=== PATIENT | male | born 1955 | race African-American/Black ===

== ENCOUNTER → 2017-10-07 | Outpatient (CLI) | payer OTHER ==
[~2017-10-07] MED LIST: ALBU1AER INH; MOTR200T PO; NORV5TAB PO
--- NOTE | 2017-10-07 13:48 | RADRPT ---
EXAM DATE/TIME: 10/07/2017 13:30 [place] COMPARISON: No previous studies available for comparison. INDICATIONS : Patient states cough. MEDICAL HISTORY : Hypertension. SURGICAL HISTORY : None. ENCOUNTER: Initial ACUITY: 1 week PAIN SCORE: 0/10 LOCATION: Bilateral chest FINDINGS: PA and lateral views of the chest demonstrate the lungs to be symmetrically aerated without evidence of mass, infiltrate or effusion. The cardiomediastinal contours are unremarkable. Osseous structure s are intact with scoliosis and degenerative change. CONCLUSION: No acute disease. There is no evidence of pneumonia. Luis Martinez MD on October 07, 2017 at 13:44 Board Certified Radiologist. This report was verified electronically.
== END ==
LOC: HRSP 12:01
PROVIDERS: ATTEND Internal Medicine Sleep Medicine
DX: R06.89 Other abnormalities of breathing (principal)
CPT/HCPCS: 36600; 71046; 82805; 94060; 94726; 94729

== ENCOUNTER → 2018-02-27 | Outpatient (CLI) | payer OTHER ==
--- NOTE | 2018-03-03 08:27 | RSPPFT ---
DATE OF PROCEDURE: 02/27/18 COMMENTS: Spirometry with FVC of 1.0, FEV1 of 0.4, FEV1/FVC ratio at 43%. There is no significant response to acutely inhaled bronchodilator. Room air arterial blood gases show pH of 7.36, PCO2 of 49, PO2 of 46. Lung volumes were not performed. IMPRESSION: 1. Very severe airways obstruction. 2. Non-significant response to acutely inhaled bronchodilator. 3. Hypoxic and Hypercapnic respiratory failure.
== END ==
LOC: HRSP 09:26
PROVIDERS: ATTEND Internal Medicine Sleep Medicine
DX: R06.89 Other abnormalities of breathing (principal)
CPT/HCPCS: 36600; 82805; 94060

== ENCOUNTER 2018-04-01 18:17 | Inpatient (IN) ==
--- NOTE | 2018-04-01 18:35 | ED ---
HPI General Chief complaint: Altered Mental Status Stated complaint: Pt states confused Time Seen by Provider: 04/01/18 18:27 History of Present Illness HPI narrative: Patient 63-year-old male reportedly dropped off at the front waiting area by a friend for evaluation of altered mental status. Patient somewhat confused on arrival, solicited by nursing question the patient is having difficulty finding words, when asked how long he says about an hour. He cannot tell us what time it is now however. Oriented to self only. He is not having any neologisms but is unable to give finish his sentence completely but is not stuttering. Does appear that he is grasping trying to find words. Given his level of altered mental status I cannot put a great deal of anthony in his timeline. Unfortunately no family or friends are able to give additional history on this patient as none are available at the bedside. Related Data Allergies Allergy/AdvReac Type Severity Reaction Status Date / Time penicillin G Allergy Severe Anaphylaxis Verified 04/01/18 19:00 Review of Systems ROS Unobtainable unobtainable due to mental condition PMFSH Medical History Medical History HTN (hypertension) (Acute) Social History Social History Substance History: Unable to Obtain Second Hand Smoke Exposure: No Smoking Status: Current some day smoker Tobacco Type: Cigarettes How Often Do You Have a Drink Containing Alcohol: 4 or more times a week Recent Travel in [facility] within the Last 8 Weeks: No Recent Out of Country Travel within the Last 8 Weeks: No Exam Narrative Exam Narrative: GENERAL: Well-developed well-nourished no obvious distress, thin. SKIN: Focused skin assessment warm/dry. HEAD: Atraumatic. Normocephalic. EYES: Pupils equal and round. No scleral icterus. No injection or drainage. ENT: No nasal bleeding or discharge. Mucous membranes pink and moist. NECK: Trachea midline. No JVD. CARDIOVASCULAR: Regular rate and rhythm. No murmur appreciated. RESPIRATORY: No accessory muscle use. Clear to auscultation. Breath sounds equal bilaterally. GASTROINTESTINAL: Abdomen soft, non-tender, nondistended. Hepatic and splenic margins not palpable. MUSCULOSKELETAL: No obvious deformities. No clubbing. No cyanosis. No edema. NEUROLOGICAL: Awake and alert. Patient unable to track to the right of midline when I am standing on his left, when I switched sides on the bed he is able to track completely. No pronator drift, no weakness appreciated in the arm or legs , he is having some difficulty identifying simple objects and finding words otherwise does not appear to have any focalized deficits. Total NIH stroke scale is 3. PSYCHIATRIC: Appropriate mood and affect; insight and judgment normal. Course Initial Documented Vital Signs Temperature 97.6 F 04/01/18 18:22 Pulse Rate 72 04/01/18 18:22 Respiratory Rate 17 04/01/18 18:22 Blood Pressure 234/107 H 04/01/18 18:22 Pulse Oximetry 94 L 04/01/18 18:22 Last Documented Vital Signs Temperature 97.6 F 04/01/18 18:22 Pulse Rate 56 L 04/01/18 19:20 Respiratory Rate 20 04/01/18 19:20 Blood Pressure 193/98 H 04/01/18 19:20 Pulse Oximetry 94 L 04/01/18 19:20 Critical Care Time Total Critical Care Time: 35 Attestation: Aggregate critical care time was 35 minutes. Time to perform other separately billable procedures was not included in the critical care time. My time did not include minutes spent treating any other patients simultaneously or on activities that did not directly contribute to the patient's treatment. The services I provided to this patient were to treat and/or prevent clinically significant deterioration that could result in: , disability, organ failure I provided critical care services requiring my management, as noted below: Chart data review, documentation time, medication orders and management, vital sign assessments/reviewing monitor data, ordering and reviewing lab tests, ordering and interpreting/reviewing x-rays and diagnostic studies, care of the patient and discussion of the patient with the admitting physicians. Medical Decision Making MDM Narrative Medical decision making narrative: Patient room to the emergency department, on further history the patient states he "feels very strange like he was going to have a stroke". Very vague timeline with the patient was stroke alerted to be taken to the CT scanner more expediently. The patient was discussed with Dr. Ji and I expressed my opinion that the patient does not have a definitive timeline and therefore would not be a candidate for systemic TPA infusion Dr. Ji is agreed. The patient was initially slated to have CTA at the same time however creatinine is 2.1. They would be reasonable to have MRI/MRA instead. This is been ordered. Patient's NIH stroke scale is very low. We will continue to work up as an inpatient for possible acute ischemic stroke. A CT of his head without contrast did show multiple old infarcts without anything acute. Patient discussed with Dr. Mcknight for admission, patient's working diagnosis is acute stroke versus hypertensive encephalopathy. No other definitive cause of his altered mental status yet been identified but given the hypertension and the multiple old infarcts seen on the patient I think it is more than likely he has had a recent infarct. He does not meet TPA guidelines does not have a definitive timeline for systemic TPA. MRI/MRA have been ordered, a KUB has been ordered at the request of maintenance mechanic technician to screen for metal objects patient is not able to answer the MRI questionnaire on his own. Differential Diagnosis Differential Diagnosis: Hemorrhagic stroke, ischemic stroke, altered mental status, electrolyte abnormality Lab Data Result diagrams: 04/01/18 18:34 Lab Results 04/01/18 04/01/18 04/01/18 Range/Units 18:34 18:34 18:34 POC Hgb (Calc) (13.0-17.0) g/dL POC Hct (39-51.0) % PT 10.7 (9.8-11.6) sec INR 1.1 Ratio APTT 26.6 (24.3-30.1) sec POC Sodium (137-144) mmol/L Sodium 142 (136-145) meq/L POC Potassium (3.6-5.0) mmol/L Potassium 3.8 (3.5-5.1) meq/L POC Chloride (102-111) mmol/L Chloride 108 H (98-107) meq/L Carbon Dioxide 26.0 (21.0-32.0) meq/L Anion Gap 8 (5-15) meq/L POC BUN (5-21) mg/dL BUN 28 H (7-18) mg/dL Creatinine 2.10 H (0.60-1.30) mg/dL POC Creatinine (0.6-1.3) mg/dL Estimated GFR 39 L (>89) mL/min POC Glucose (68-110) mg/dl Random Glucose 72 L (74-106) mg/dL Calcium 8.5 (8.5-10.1) mg/dL Total Creatine Kinase 80 (39-308) U/L Troponin I 0.03 (0.02-0.05) ng/mL Blood Type B Positive Blood Type Recheck Required Antibody Screen Negative 04/01/18 04/01/18 Range/Units 18:36 18:36 POC Hgb (Calc) 17.0 (13.0-17.0) g/dL POC Hct 50.0 (39-51.0) % PT (9.8-11.6) sec INR Ratio APTT (24.3-30.1) sec POC Sodium 141 (137-144) mmol/L Sodium (136-145) meq/L POC Potassium 3.8 (3.6-5.0) mmol/L Potassium (3.5-5.1) meq/L POC Chloride 101 L (102-111) mmol/L Chloride (98-107) meq/L Carbon Dioxide (21.0-32.0) meq/L Anion Gap (5-15) meq/L POC BUN 31 H (5-21) mg/dL BUN (7-18) mg/dL Creatinine (0.60-1.30) mg/dL POC Creatinine 2.1 H (0.6-1.3) mg/dL Estimated GFR (>89) mL/min POC Glucose 73 74 (68-110) mg/dl Random Glucose (74-106) mg/dL Calcium (8.5-10.1) mg/dL Total Creatine Kinase (39-308) U/L Troponin I (0.02-0.05) ng/mL Blood Type Blood Type Recheck Antibody Screen Imaging Data Radiologist's impression: Chest X-Ray 04/01/18 18:35 CONCLUSION: No acute abnormality is seen. Head CT 04/01/18 18:35 CONCLUSION: 1. No areas of hemorrhage or mass effect are seen. 2. Several areas of low density as described above likely from prior infarct. Report was called by Dr. Gonzalez to Dr. Lynch at 7:03 PM] Discharge Plan Discharge Disposition Patient Disposition: 30 Still Patient Discharge Details Diagnosis: Stroke Physicians Team ED Provider: Corey Lynch Primary Care Provider: Daniel Bradshaw Discharge Interventions Interventions: Vital Signs Last Done: 04/01/18 19:20 Status ED Status: Pending Admission
[2018-04-01] MEDS ORDERED: *Labetalol HCl Inj 100 MG/20 ML Vial PERIprocedural Use ONLY IV.PUSH ONE (18:37)
[2018-04-01] MEDS ORDERED: Sod Chloride 0.9% Inj 1,000 ML IV.CONT SCH (18:45)
--- NOTE | 2018-04-01 19:05 | CT ---
EXAM DATE: 04/01/2018 6:57 PM EDT AGE/SEX: 63 years / Male INDICATIONS: Trouble with speech CLINICAL DATA: This is the patient's initial encounter. Patient reports that signs and symptoms have been present for 1 day and indicates a pain score of 0/10. MEDICAL/SURGICAL HISTORY: . Unable to obtain . UNABLE TO OBTAIN RADIATION DOSE: 30.07 CTDI (mGy) COMPARISON: No prior exams available for comparison. TECHNIQUE: CT of the head without contrast. Using automated exposure control and adjustment of the mA and/or kV according to patient size, radiation dose was kept as low as reasonably achievable to ob tain optimal diagnostic quality images. DICOM format image data is available electronically for revi ew and comparison. FINDINGS: Cerebrum: The ventricles and cortical sulci are mildly widened. There is an area of low density seen at the posterior superior lateral right parietal lobe likely related to a small area of encephalomal acia. The patient also has areas of encephalomalacia at the left caudate head and anterior limb of th e internal capsule, inferior right caudate head, and posterior inferior medial left frontal lobe erwin cent to the inferior aspect of the frontal horn of the left lateral ventricle. These are likely the s equela of prior infarcts. No evidence of midline shift, mass lesion, hemorrhage or acute infarction . No extraaxial fluid collections are seen. Posterior Fossa: The cerebellum and brainstem are intact. The 4th ventricle is midline. The cerebe llopontine angle is unremarkable. Extracranial: The visualized portion of the orbits is intact. Skull: The calvaria is intact. No evidence of skull fracture. CONCLUSION: 1. No areas of hemorrhage or mass effect are seen. 2. Several areas of low density as described above likely from prior infarct. Report was called by Dr. Gonzalez to Dr. Lynch at 7:03 PM] Electronically signed by: Corey Gonzalez MD 04/01/2018 7:04 PM EDT
--- NOTE | 2018-04-01 19:12 | XR ---
EXAM DATE: 04/01/2018 7:02 PM EDT AGE/SEX: 63 years / Male INDICATIONS: Stroke alert. CLINICAL DATA: This is the patient's initial encounter. Patient reports that signs and symptoms have been present for 1 day and indicates a pain score of 0/10. MEDICAL/SURGICAL HISTORY: Stroke. Hypertension. None. COMPARISON: [facility] – [place], CHEST PA & LAT, 10/07/2017. . FINDINGS: The heart size is normal. The lungs appear hyperinflated. A focal consolidation is not clearly seen. No effusion is seen. CONCLUSION: No acute abnormality is seen. Electronically signed by: Corey Gonzalez MD 04/01/2018 7:11 PM EDT
[2018-04-01 19:14] LABS: Activated Partial Thrombo Time 26.6 sec (24.3-30.1); INR 1.1 Ratio; Prothrombin Time 10.7 sec (9.8-11.6)
[2018-04-01 19:17] LABS: Calcium 8.5 mg/dL (8.5-10.1); Potassium 3.8 meq/L (3.5-5.1)
[2018-04-01 19:19] LABS: Troponin I 0.03 ng/mL (0.02-0.05)
[2018-04-01] MEDS ORDERED: Acetaminophen 325 MG Tablet PO PRN (20:24)
--- NOTE | 2018-04-01 20:48 | XR ---
EXAM DATE: 04/01/2018 8:41 PM EDT AGE/SEX: 63 years / Male INDICATIONS: MRI screening for foreign body. CLINICAL DATA: This is the patient's initial encounter. Patient reports that signs and symptoms have been present for 1 day and indicates a pain score of 0/10. MEDICAL/SURGICAL HISTORY: None. None. [place] [facility] [place]. [facility] [place] 1[place] SINGLE AP, 04/01/2018. . FINDINGS: The abdominal bowel gas pattern is normal. No abnormal masses, calcifications, or organomegaly is s een. The osseous structures are unremarkable. CONCLUSION: No foreign body is seen. Electronically signed by: Corey Gonzalez MD 04/01/2018 8:47 PM EDT
[2018-04-01] MEDS ORDERED: Haloperidol Inj 5 MG/ML Ampul IV.PUSH PRN (21:19)
[2018-04-01] MEDS ORDERED: LORazepam 1 MG Tablet PO PRN (21:19)
--- NOTE | 2018-04-01 21:21 | P.HP ---
History of Present Illness Service: [facility] Primary Care Physician: Daniel Bradshaw MD History of Present Illness: 63-year-old male with a past medical history significant for hypertension and previous CVA along with cocaine and alcohol abuse, presents to the emergency department for the evaluation of altered mental status. The patient reports that he felt funny. He is an extremely poor historian. Upon further questioning, he states he had word finding difficulty and could not talk for "a while." His symptoms have since resolved. Per ED documentation, the patient was dropped off in the front waiting area by a friend for altered mental status. He was oriented to self only. He was extremely hypertensive on arrival to the emergency department. The patient currently denies chest pain or shortness of breath. No headache. No abdominal pain. No nausea/vomiting/ diarrhea. No focal deficits. Inpatient Certification: I certify that the inpatient services were ordered in accordance with Medicare regulations governing the order. This includes certification that hospital inpatient services are reasonable and necessary and in the case of services not specified as inpatient-only under 42 CFR 419.22(n), that they are appropriately provided as inpatient services in accordance to with the 2-midnight benchmark under 43 CFR 412.3(e) Estimated Total Length of Stay (Days): 2 Plans for Post Hospital Care: Not yet determined [facility] - History History Provided By: Patient - Medical History Medical History: Medical History (Last Updated 04/01/18 @ 18:46 by Abbey Mckay) HTN (hypertension) - Family History Family History: Family History (Last Updated 04/01/18 @ 21:14 by Itzel Mcknight MD) Other No family history of cardiac disease - Tobacco History Second Hand Smoke Exposure: No Tobacco Use In Past 30 Days: Yes Smoking Status: Current some day smoker Tobacco Type: Cigarettes - Alcohol History How Often Do You Have a Drink Containing Alcohol: 4 or more times a week - Substance Use History Substance History: Unable to Obtain - Travel History Recent Travel in the [place] Within the Last 8 Weeks: No Recent Travel Out of the Country Within the Last 8 Weeks: No - Immunization History Tetanus Immunization: Unable to Assess Medications and Allergies Active Medications: Active Medications Acetaminophen (Tylenol) 650 mg PO Q4H PRN PRN Reason: Temp > 100.4 Aspirin (Aspirin Chew) 162 mg PO DAILY CHAITANYA Enalaprilat (Vasotec Inj) 1.25 mg IV.PUSH Q4H PRN PRN Reason: For SBP > 220 or DBP > 120 Sodium Chloride (Ns Inj) 1,000 mls @ 100 mls/hr IV.CONT .Q10H CHAITANYA Ondansetron HCl (Zofran Odt) 4 mg PO Q6H PRN PRN Reason: NAUSEA OR VOMITING Sodium Chloride (Ns Flush) 2 ml IV.FLUSH PRN PRN PRN Reason: FLUSH AFTER USING IV ACCESS Allergies Allergy/AdvReac Type Severity Reaction Status Date / Time penicillin G Allergy Severe Anaphylaxis Verified 04/01/18 19:00 Exam Vital signs: Vital Signs 04/01/18 18:22 04/01/18 18:46 04/01/18 19:20 Temperature 97.6 F Pulse Rate 72 56 L Respiratory Rate 17 20 Blood Pressure 234/107 H 214/113 H 193/98 H Pulse Oximetry 94 L 94 L Intake & Output 04/01/18 04/01/18 04/02/18 06:59 18:59 06:59 Weight 68.039 kg Narrative: Gen.: No acute distress Head: Normocephalic. Atraumatic. EENT: Pupils equal round and reactive to light. Nose without drainage. Airway intact. Throat without injection. Cardiovascular: Regular rate and rhythm. No murmurs, rubs or gallops. Respiratory: Lungs clear to auscultation bilaterally. No wheezes or rhonchi. Abdomen: Soft, nontender, nondistended. No peritoneal signs. Musculoskeletal: No gross deformities. No edema. Skin: No obvious rashes or erythema. Neuro: Cranial nerves II through XII intact. Sensory intact. 5/5 strength throughout. No dysarthria. Results - Labs CBC & Chem 7: 04/01/18 18:34 Labs: Laboratory Results - last 24 hr 04/01/18 04/01/18 04/01/18 18:34 18:34 18:34 POC Hgb (Calc) POC Hct PT 10.7 INR 1.1 APTT 26.6 POC Sodium Sodium 142 POC Potassium Potassium 3.8 POC Chloride Chloride 108 H Carbon Dioxide 26.0 Anion Gap 8 POC BUN BUN 28 H Creatinine 2.10 H POC Creatinine Estimated GFR 39 L POC Glucose Random Glucose 72 L Calcium 8.5 Total Creatine Kinase 80 Troponin I 0.03 Blood Type B Positive Blood Type Recheck Required Antibody Screen Negative 04/01/18 04/01/18 18:36 18:36 POC Hgb (Calc) 17.0 POC Hct 50.0 PT INR APTT POC Sodium 141 Sodium POC Potassium 3.8 Potassium POC Chloride 101 L Chloride Carbon Dioxide Anion Gap POC BUN 31 H BUN Creatinine POC Creatinine 2.1 H Estimated GFR POC Glucose 73 74 Random Glucose Calcium Total Creatine Kinase Troponin I Blood Type Blood Type Recheck Antibody Screen - Imaging Impressions Chest X-Ray 04/01/18 18:35 CONCLUSION: No acute abnormality is seen. Head CT 04/01/18 18:35 CONCLUSION: 1. No areas of hemorrhage or mass effect are seen. 2. Several areas of low density as described above likely from prior infarct. Report was called by Dr. Gonzalez to Dr. Lynch at 7:03 PM] Abdomen X-Ray 04/01/18 19:57 CONCLUSION: No foreign body is seen. Caprini VTE Risk Assessment Caprini VTE Risk Assessment: Moderate/High Risk (score >= 2) Caprini Risk Assessment Model: Point Value = 1 Point Value = 2 Point Value = 3 Point Value = 5 Age 41-60 Minor surgery BMI > 25 kg/m2 Swollen legs Varicose veins or History of unexplained or recurrent spontaneous Oral contraceptives or hormone replacement Sepsis (< 1 month) Serious lung disease, including pneumonia (< 1 month) Abnormal pulmonary function Acute myocardial infarction Congestive heart failure (< 1 month) History of inflammatory bowel disease Medical patient at bed rest Age 61-74 Arthroscopic surgery Major open surgery (> 45 min) Laparoscopic surgery (> 45 min) Malignancy Confined to bed (> 72 hours) Immobilizing plaster cast Central venous access Age >= 75 History of VTE Family history of VTE Factor V Leiden Prothrombin [id number] Lupus anticoagulant Anticardiolipin antibodies Elevated serum homocysteine Heparin-induced thrombocytopenia Other congenital or acquired thrombophilia Stroke (< 1 month) Elective arthroplasty Hip, pelvis, or leg fracture Acute spinal cord injury (< 1 month) Prophylaxis Regimen: Total Risk Factor Score Risk Level Prophylaxis Regimen 0-1 Low Early ambulation 2 Moderate Order ONE of the following: *Sequential Compression Device (SCD) *Heparin 5000 units SQ BID 3-4 Higher Order ONE of the following medications: *Heparin 5000 units SQ TID *Enoxaparin/Lovenox 40 mg SQ daily (WT < 150 kg, CrCl > 30 mL/min) *Enoxaparin/Lovenox 30 mg SQ daily (WT < 150 kg, CrCl > 10-29 mL/min) *Enoxaparin/Lovenox 30 mg SQ BID (WT < 150 kg, CrCl > 30 mL/min) AND/OR *Sequential Compression Device (SCD) 5 or more Highest Order ONE of the following medications: *Heparin 5000 units SQ TID (Preferred with Epidurals) *Enoxaparin/Lovenox 40 mg SQ daily (WT < 150 kg, CrCl > 30 mL/min) *Enoxaparin/Lovenox 30 mg SQ daily (WT < 150 kg, CrCl > 10-29 mL/min) *Enoxaparin/Lovenox 30 mg SQ BID (WT < 150 kg, CrCl > 30 mL/min) AND *Sequential Compression Device (SCD) Assessment and Plan - Plan Assessment/plan: 1. Altered mental status/stroke code Likely secondary to cocaine/alcohol intoxication No focal deficits and symptoms have resolved Differential includes TIA/CVA Aspirin MRI/MRA pending Carotid ultrasound pending Neurology consulted, appreciate recommendations 2. Hypertensive crisis Likely secondary to cocaine abuse Unclear if patient takes any home medications Vasotec as needed Permissive hypertension given possible CVA 3. Alcohol/cocaine abuse [facility] protocol Monitor for signs of withdrawal Tox screen pending Cessation counseling provided 4. Acute kidney injury Creatinine 2.10, baseline unknown IV fluid hydration Monitor renal function FEN N.p.o. Electrolytes: Monitor and replete prn NS at 70 cc/hour
--- NOTE | 2018-04-01 21:30 | XR ---
EXAM DATE: 04/01/2018 9:20 PM EDT AGE/SEX: 63 years / Male INDICATIONS: MRI clearance for orbits. CLINICAL DATA: This is the patient's initial encounter. Patient reports that signs and symptoms have been present for 1 day and indicates a pain score of 0/10. MEDICAL/SURGICAL HISTORY: Non-responsive. Non-responsive. COMPARISON: [facility] – [place], CT HEAD W/O CONTRAST, 04/01/2018. . FINDINGS: Examination of the orbits was performed. There is no evidence of fracture involving the bony structu res surrounding the orbits. The maxillary sinuses appear to be well aerated. There is a small 2 mm metallic density seen at the right frontal scalp. No orbital metal is seen. Gabriel gical clips are seen in the upper right neck region. CONCLUSION: Small 2 mm metallic density in the right frontal scalp. No orbital metal is seen. Electronically signed by: Corey Gonzalez MD 04/01/2018 9:29 PM EDT
[2018-04-01] MEDS ORDERED: Gadobutrol PF 10 MMOL/10 ML Vial (for RAD) IV.SIG ONE (22:15)
--- NOTE | 2018-04-01 22:20 | MR ---
EXAM DATE: 04/01/2018 10:02 PM EDT AGE/SEX: 63 years / Male INDICATIONS: Stroke. CLINICAL DATA: This is the patient's initial encounter. Patient reports that signs and symptoms have been present for 1 day and indicates a pain score of Nonresponsive. MEDICAL/SURGICAL HISTORY: Non-responsive. Non-responsive. COMPARISON: [facility] [place], MRA HEAD W/O CONTRAST, 04/01/2018. [facility] [place], CT HEAD W/O CONTRAST, 04/01/2018. . TECHNIQUE: Multiplanar, multisequence examination of the brain was performed without contrast. FINDINGS: Cerebrum: The ventricles are normal for age. The cortical sulci are widened. There is a small area o f encephalomalacia at the right temporal and posterior right parietal lobe. There is an old lacunar i nfarct at the left periventricular white matter and at the right caudate head. No evidence of midline shift, mass lesion, hemorrhage or acute infarction. No extraaxial fluid collections are seen. The pituitary gland and suprasellar cistern are normal in configuration. White Matter: There are scattered areas of increased signal seen in the cerebral white matter. Posterior Fossa: The cerebellum and brainstem are intact. The 4th ventricle is midline. The cerebel lopontine angle is unremarkable. The cerebellar tonsils are normal in position. Diffusion Imaging: No focal areas of restricted diffusion are seen. No evidence of acute infarction . Extracranial: The visualized portions of the orbits and paranasal sinuses are unremarkable. There is an area of susceptibility artifact over the right frontal scalp region. The patient has small 2 mm a ana of metallic density in the right frontal scalp soft tissues. CONCLUSION: 1. No acute abnormality seen. 2. Right temporal and right parietal encephalomalacia and old lacunar infarct at the left periventri cular white matter and right caudate head. 3. Scattered areas of demyelination seen in the cerebral white matter. Electronically signed by: Corey Gonzalez MD 04/01/2018 10:19 PM EDT
--- NOTE | 2018-04-01 22:24 | MR ---
EXAM DATE: 04/01/2018 10:02 PM EDT AGE/SEX: 63 years / Male INDICATIONS: Stroke. CLINICAL DATA: This is the patient's initial encounter. Patient reports that signs and symptoms have been present for 1 day and indicates a pain score of Nonresponsive. MEDICAL/SURGICAL HISTORY: None. None. COMPARISON: [facility] [place], MR HEAD W/O CONTRAST, 04/01/2018. . TECHNIQUE: 3D [id number] MRA was performed. Source images, multiplanar STS MIP, and 3D volum e MIP reconstructions were reviewed. FINDINGS: The internal carotid arteries are patent bilaterally. The anterior and middle cerebral arteries appea r normal. The vertebral and basilar arteries are normal. There is asymmetry to the posterior cerebral arteries with the right posterior cerebral artery appearing less prominent. The right posterior cere bral artery can only be traced to the posterior margin of the midbrain. The left posterior cerebral a rtery can be seen to extend more posteriorly into the occipital region. CONCLUSION: Asymmetry with diminished flow seen in the right posterior cerebral artery. Electronically signed by: Corey Gonzalez MD 04/01/2018 10:23 PM EDT
--- NOTE | 2018-04-01 22:28 | MR ---
EXAM DATE: 04/01/2018 10:17 PM EDT AGE/SEX: 63 years / Male INDICATIONS: Stroke. CLINICAL DATA: This is the patient's initial encounter. Patient reports that signs and symptoms have been present for 1 day and indicates a pain score of Nonresponsive. MEDICAL/SURGICAL HISTORY: Non-responsive. Non-responsive. COMPARISON: No prior exams available for comparison. TECHNIQUE: 10 ml Gadavist (gadobutrol) contrast infused MRA (single exam dose) of the extracranial circulation was performed using a neurovascular coil. Postprocessing was performed, including rotati ng sub-volume maximum intensity projections of each carotid artery, rotating full-volume maximum inte nsity projections of both carotid arteries, sagittal and coronal sliding thin-slab reformations of ea ch carotid artery, and left oblique sliding thin-slab reformation through the aortic arch to include the origin of the arch branch vessels. FINDINGS: Aortic Arch : There is a three-vessel origin of the great vessels from the aorta. No evidence of o stial narrowing. Right Carotid : The common carotid artery is intact. The carotid bulb has a normal configuration wi thout ulceration or narrowing. There is a focal area of narrowing at the proximal right internal car otid artery 1.7 cm beyond the carotid bifurcation. The stenosis appears moderate to severe.. The ext ernal carotid artery is intact. Left Carotid : The common carotid artery is intact. The carotid bulb has a normal configuration wit hout ulceration or narrowing. The internal carotid artery lumen is smooth without stenosis. The ext ernal carotid artery is intact. Vertebrals : The vertebral arteries have a symmetric diameter. No stenotic lesions are seen. CONCLUSION: Moderate to severe focal stenosis at the proximal right internal carotid artery. Percent stenosis is calculated using the diameter of the stenotic region over the diameter of the nor mal distal internal carotid artery Electronically signed by: Corey Gonzalez MD 04/01/2018 10:27 PM TRAVT
--- NOTE | 2018-04-01 22:51 | US ---
EXAM DATE: 04/01/2018 10:48 PM EDT AGE/SEX: 63 years / Male INDICATIONS: Altered mental state. CLINICAL DATA: This is the patient's initial encounter. Patient reports that signs and symptoms have been present for 1 day and indicates a pain score of 3/10. MEDICAL/SURGICAL HISTORY: Hypertension. Carotid endarterectomy. Right carotid endarterectomy. COMPARISON: No prior exams available for comparison. VELOCITY PARAMETERS: ICA/CCA Ratio: Right 1.0 , Left 1.1 ICA: Right 58 cm/sec, Left 45 cm/sec CCA: Right 58 cm/sec, Left 42 cm/sec ECA: Right 25 cm/sec, Left 48 cm/sec Vertebral: Right 43 cm/sec antegrade, Left 41 cm/sec antegrade FINDINGS: Right Carotid: There is scattered plaque in the common carotid artery and carotid bulb regions witho ut a significant stenosis. The waveforms are within normal limits. Left Carotid: There is scattered plaque in the common carotid artery and carotid bulb regions withou t a significant stenosis. The waveforms are within normal limits. Other: None. CONCLUSION: Scattered plaque without significant stenosis. Electronically signed by: Corey Gonzalez MD 04/01/2018 10:50 PM EDT
[2018-04-02 00:27] LABS: Bilirubin,Urine Negative (Negative); Clarity,Urine Clear (Clear); Color,Urine Yellow (Yellw/Straw); Glucose,Urine (UA) Negative (Negative); Leukocyte Esterase,Urine Moderate (Negative); Mucus,Urine Few /lpf (Occasional); Nitrite,Urine Negative (Negative); Specific Gravity,Urine 1.012 (1.002-1.035); Squamous Epithelial Cell,Urine <1 /hpf (0-5)
[2018-04-02 00:30] LABS: Amphetamine Screen,Urine Neg (Neg); Barbiturate Screen,Urine Neg (Neg); Cannabinoid Screen,Urine Neg (Neg); Cocaine Screen,Urine Pos (Neg)
[2018-04-02 00:32] LABS: Opiate Screen,Urine Neg (Neg)
[2018-04-02] MEDS: Sod Chloride 0.9% Inj 1,000 ML IV.CONT SCH ×3 (03:07→21:54)
[2018-04-02 07:32] LABS: Baso % (Auto) 0.5 % (0.0-2.0); Eos # (Auto) 0.1 th/mm3 (0.0-0.4); Eos % (Auto) 3.5 % (0.0-4.0); Hematocrit 49.8 % (39.0-51.0); Hemoglobin 15.9 gm/dL (13.0-17.0); Lymph # (Auto) 1.4 th/mm3 (1.0-4.8); Lymph % (Auto) 35.4 % (9.0-44.0); Mean Corpuscular HGB Conc 31.9 % (32.0-36.0); Mean Corpuscular Hemoglobin 31.1 pg (27.0-34.0); Mean Corpuscular Volume 97.4 fL (80.0-100.0); Mono # (Auto) 0.6 th/mm3 (0.0-0.9); Mono % (Auto) 14.8 % (0.0-8.0); Neut # (Auto) 1.8 th/mm3 (1.8-7.7); Neut % (Auto) 45.8 % (16.0-70.0); Platelet Count 98 th/mm3 (150-450); Red Blood Count 5.11 mil/mm3 (4.50-5.90); Red Cell Distribution Width 14.5 % (11.6-17.2); White Blood Count 3.9 th/mm3 (4.0-11.0)
[2018-04-02 07:51] LABS: Albumin 2.9 g/dL (3.4-5.0); Anion Gap 8 meq/L (5-15); Aspartate Aminotransferase 22 U/L (15-37); Blood Urea Nitrogen 19 mg/dL (7-18); Calcium 8.6 mg/dL (8.5-10.1); Carbon Dioxide 28.6 meq/L (21.0-32.0); Chloride 107 meq/L (98-107); Glomerular Filtration Rate 62 mL/min (>89); Glucose,Random 79 mg/dL (74-106); Potassium 3.7 meq/L (3.5-5.1); Sodium 144 meq/L (136-145)
[2018-04-02 07:52] LABS: Alanine Aminotransferase 20 U/L (12-78); Cholesterol 142 mg/dL (120-200)
[2018-04-02 07:54] LABS: Alkaline Phosphatase 73 U/L (45-117); Chol/HDL Ratio 2.99 Ratio; HDL Cholesterol 47.4 mg/dL (40.0-60.0); LDL Cholesterol,Calculated 72 mg/dL (0-99); Total Protein 6.4 g/dL (6.4-8.2); Triglycerides 114 mg/dL (42-150)
[2018-04-02] MEDS ORDERED: Levofloxacin 500 mg Premix Inj 500 MG/100 ML PIGGYBACK IV.SIG SCH ×3 (08:00→12:00)
[2018-04-02 08:33] LABS: Platelet Morphology Normal (Normal)
--- NOTE | 2018-04-02 08:52 | P.CONNEU ---
History of Present Illness Service: Neurology Consult date: 04/02/18 Requesting Physician: Itzel Mcknight Reason for Consult: TIA Primary Care Provider: Daniel Bradshaw MD Chief Complaint: Aphasia History of Present Illness: 63 y/o male with past hx of CVA and HTN, noted yesterday at 2pm he had difficulty speaking. He knew the words he wanted to say but could not get any words out. He is unsure how long this lasted. He is unable to tell me when he came to the hospital and when he felt he was back to normal. He states he cannot remember part of what occurred yesterday. He denies hx of seizure or convulsions. He reports this morning he feels back at his baseline. He had a stroke in the past and had been on ASA 81mg but reports he has not been taking this at home. He currently only takes his BP medication. He also reports hx of alcohol use (at least 2 beers daily) and cocaine use. He states he does not use cocaine frequently but had used it recently. He will not expand on the last time he used it. He denies any use of injectable drugs. He had smoked heavily in the past but currently only smokes 1-2 cigarrettes daily. He denied any weakness, sensory or gait changes with his aphasia. No change in vision. He denies any history of irregular heart beat. [facility] - History History Provided By: Patient - Medical History Medical History: Medical History (Last Reviewed 04/02/18 @ 10:25 by Elida Strickland [employer]er/Training Officer, [employer]) HTN (hypertension) - Family History Family History: Family History (Last Updated 04/01/18 @ 21:14 by Itzel Mcknight MD) Other No family history of cardiac disease - Tobacco History Second Hand Smoke Exposure: No Tobacco Use In Past 30 Days: Yes Smoking Status: Current some day smoker Tobacco Type: Cigarettes - Alcohol History How Often Do You Have a Drink Containing Alcohol: 4 or more times a week - Substance Use History Substance History: Unable to Obtain - Travel History Recent Travel in the [place] Within the Last 8 Weeks: No Recent Travel Out of the Country Within the Last 8 Weeks: No - Immunization History Tetanus Immunization: Unable to Assess Medications and Allergies Allergies Allergy/AdvReac Type Severity Reaction Status Date / Time penicillin G Allergy Severe Anaphylaxis Verified 04/01/18 19:00 Home Medications Medication Instructions Recorded Confirmed Type No Known Home Medications 04/02/18 04/02/18 History Active Medications: Active Medications Acetaminophen (Tylenol) 650 mg PO Q4H PRN PRN Reason: Temp > 100.4 Aspirin (Aspirin Chew) 162 mg PO DAILY CHAITANYA Enalaprilat (Vasotec Inj) 1.25 mg IV.PUSH Q4H PRN PRN Reason: For SBP > 220 or DBP > 120 Last Admin: 04/02/18 06:13 Dose: 1.25 mg Flumazenil (Romazecon Inj) 0.2 mg IV.PUSH Q1M PRN PRN Reason: OVERSEDATION Haloperidol Lactate (Haldol Inj) 1 mg IV.PUSH Q15M PRN PRN Reason: for severe agitation Sodium Chloride (Ns Inj) 1,000 mls @ 100 mls/hr IV.CONT .Q10H CHAITANYA Last Admin: 04/02/18 07:00 Dose: 100 mls/hr Multivitamins 10 ml/ Folic (Acid 1 mg/ Sodium Chloride) 510.2 mls @ 125 mls/hr IV.SIG DAILY CHAITANYA Stop: 04/07/18 08:59 Levofloxacin/Dextrose (Levaquin 500 Mg Premix Inj) 500 mg in 100 mls @ 100 mls/ hr IV.SIG Q24H CHAITANYA Lorazepam (Ativan) 1 mg PO Q4H PRN PRN Reason: for CIWA 8-10 Lorazepam (Ativan) 2 mg PO Q2H PRN PRN Reason: for CIWA 11-14 Lorazepam (Ativan Inj) 2 mg IV.PUSH Q2H PRN PRN Reason: for CIWA 11-14 Lorazepam (Ativan Inj) 2 mg IV.PUSH Q1H PRN PRN Reason: for CIWA 15-20 Lorazepam (Ativan Inj) 2 mg IV.PUSH Q15M PRN PRN Reason: for CIWA > 20 Lorazepam (Ativan Inj) 1 mg IV.PUSH Q4H PRN PRN Reason: for CIWA 8-10 Ondansetron HCl (Zofran Odt) 4 mg PO Q6H PRN PRN Reason: NAUSEA OR VOMITING Sodium Chloride (Ns Flush) 2 ml IV.FLUSH PRN PRN PRN Reason: FLUSH AFTER USING IV ACCESS Thiamine HCl (Vitamin B1) 100 mg PO DAILY [facility] Exam Vital signs: Vital Signs 04/01/18 18:22 04/01/18 18:46 04/01/18 19:20 Temperature 97.6 F Pulse Rate 72 56 L Respiratory Rate 17 20 Blood Pressure 234/107 H 214/113 H 193/98 H Pulse Oximetry 94 L 94 L 04/01/18 20:00 04/01/18 23:00 04/02/18 01:00 Temperature Pulse Rate 68 67 54 L Respiratory Rate 16 16 14 Blood Pressure 190/112 H 183/109 H 173/100 H Pulse Oximetry 97 98 99 04/02/18 02:00 04/02/18 06:14 Temperature Pulse Rate 52 L 58 L Respiratory Rate 12 17 Blood Pressure 167/97 H 220/108 H Pulse Oximetry 99 99 Intake & Output 04/01/18 04/02/18 04/02/18 18:59 06:59 18:59 Intake Total 1000 / 1000 Balance 1000 / 1000 Weight 68.039 kg Intake: IV 1000 / 1000 NS Inj 1,000 ML @ 100 mls/hr IV 1000 / 1000 .CONT .Q10H [facility] Rx#:[id number] - Constitutional no acute distress - Routine HEENT Exam Head: Present: normocephalic, atraumatic Eye: Present: EOMI, PERRL - Routine Cardiovascular Exam Present: RRR - Routine Extremities Exam Present: full ROM - Routine Neurological Exam Present: alert, oriented X3, CN II-XII intact no facial asymmetry, speech normal (no aphasia or dysarthria), no drift, no focal deficit, sensory intact, strength 5/5 upper and lower, no spasticity, 1+ reflexes, toes downgoing, gait withheld, f-n-f intact, no ataxia, no tremor, no involuntary movements Results - Labs CBC & Chem 7: 04/02/18 06:20 04/02/18 06:20 Labs: Laboratory Results - last 24 hr 04/01/18 04/01/18 04/01/18 18:34 18:34 18:34 WBC RBC Hgb POC Hgb (Calc) Hct POC Hct MCV MCH MCHC RDW Plt Count MPV Prelim Diff (Auto) Neut % (Auto) Lymph % (Auto) Trigg % (Auto) Eos % (Auto) Baso % (Auto) Neut # (Auto) Lymph # (Auto) Trigg # (Auto) Eos # (Auto) Baso # (Auto) WBC Differential Diff Scan Differential Comment Platelet Estimate Platelet Morphology PT 10.7 INR 1.1 APTT 26.6 POC Sodium Sodium 142 POC Potassium Potassium 3.8 POC Chloride Chloride 108 H Carbon Dioxide 26.0 Anion Gap 8 POC BUN BUN 28 H Creatinine 2.10 H POC Creatinine Estimated GFR 39 L POC Glucose Random Glucose 72 L Calcium 8.5 Total Bilirubin AST ALT Alkaline Phosphatase Total Creatine Kinase 80 Troponin I 0.03 Total Protein Albumin Triglycerides Cholesterol LDL Cholesterol, Calc HDL Cholesterol Cholesterol/HDL Ratio Urine Color Urine Clarity Urine pH Ur Specific [place] Urine Protein Urine Glucose (UA) Urine Ketones Urine Occult Blood Urine Nitrate Urine Bilirubin Urine Urobilinogen Ur Leukocyte Esterase Urine RBC Urine WBC Urine WBC Clumps Ur Squamous Epith Cells Urine Mucus Micro UA Comment Urine Culture Comments Urine Opiates Screen Ur Barbiturates Screen Ur Amphetamines Screen U Benzodiazepines Scrn Urine Cocaine Screen U Cannabinoids Screen Blood Type B Positive Blood Type Recheck Required Antibody Screen Negative 04/01/18 04/01/18 04/02/18 18:36 18:36 00:10 WBC RBC Hgb POC Hgb (Calc) 17.0 Hct POC Hct 50.0 MCV MCH MCHC RDW Plt Count MPV Prelim Diff (Auto) Neut % (Auto) Lymph % (Auto) Trigg % (Auto) Eos % (Auto) Baso % (Auto) Neut # (Auto) Lymph # (Auto) Trigg # (Auto) Eos # (Auto) Baso # (Auto) WBC Differential Diff Scan Differential Comment Platelet Estimate Platelet Morphology PT INR APTT POC Sodium 141 Sodium POC Potassium 3.8 Potassium POC Chloride 101 L Chloride Carbon Dioxide Anion Gap POC BUN 31 H BUN Creatinine POC Creatinine 2.1 H Estimated GFR POC Glucose 73 74 Random Glucose Calcium Total Bilirubin AST ALT Alkaline Phosphatase Total Creatine Kinase Troponin I Total Protein Albumin Triglycerides Cholesterol LDL Cholesterol, Calc HDL Cholesterol Cholesterol/HDL Ratio Urine Color Yellow Urine Clarity Clear Urine pH 5.0 Ur Specific [place] 1.012 Urine Protein 100 H Urine Glucose (UA) Negative Urine Ketones Negative Urine Occult Blood Small H Urine Nitrate Negative Urine Bilirubin Negative Urine Urobilinogen Less than 2 Ur Leukocyte Esterase Moderate H Urine RBC 3 Urine WBC 58 H Urine WBC Clumps Few H Ur Squamous Epith Cells <1 Urine Mucus Few H Micro UA Comment Culture indicated Urine Culture Comments Culture indicated Urine Opiates Screen Ur Barbiturates Screen Ur Amphetamines Screen U Benzodiazepines Scrn Urine Cocaine Screen U Cannabinoids Screen Blood Type Blood Type Recheck Antibody Screen 04/02/18 04/02/18 04/02/18 00:10 06:20 06:20 WBC 3.9 L RBC 5.11 Hgb 15.9 POC Hgb (Calc) Hct 49.8 POC Hct MCV 97.4 MCH 31.1 MCHC 31.9 L RDW 14.5 Plt Count 98 L MPV 9.0 Prelim Diff (Auto) Slide review pending Neut % (Auto) 45.8 Lymph % (Auto) 35.4 Trigg % (Auto) 14.8 H Eos % (Auto) 3.5 Baso % (Auto) 0.5 Neut # (Auto) 1.8 Lymph # (Auto) 1.4 Trigg # (Auto) 0.6 Eos # (Auto) 0.1 Baso # (Auto) 0.0 WBC Differential . Diff Scan Auto diff confirmed Differential Comment . Platelet Estimate Low L Platelet Morphology Normal PT INR APTT POC Sodium Sodium 144 POC Potassium Potassium 3.7 POC Chloride Chloride 107 Carbon Dioxide 28.6 Anion Gap 8 POC BUN BUN 19 H Creatinine 1.39 H POC Creatinine Estimated GFR 62 L POC Glucose Random Glucose 79 Calcium 8.6 Total Bilirubin 0.8 AST 22 ALT 20 Alkaline Phosphatase 73 Total Creatine Kinase Troponin I Total Protein 6.4 Albumin 2.9 L Triglycerides 114 Cholesterol 142 LDL Cholesterol, Calc 72 HDL Cholesterol 47.4 Cholesterol/HDL Ratio 2.99 Urine Color Urine Clarity Urine pH Ur Specific [place] Urine Protein Urine Glucose (UA) Urine Ketones Urine Occult Blood Urine Nitrate Urine Bilirubin Urine Urobilinogen Ur Leukocyte Esterase Urine RBC Urine WBC Urine WBC Clumps Ur Squamous Epith Cells Urine Mucus Micro UA Comment Urine Culture Comments Urine Opiates Screen Neg Ur Barbiturates Screen Neg Ur Amphetamines Screen Neg U Benzodiazepines Scrn Neg Urine Cocaine Screen Pos H U Cannabinoids Screen Neg Blood Type Blood Type Recheck Antibody Screen - Imaging Impressions Carotid Doppler Study 04/01/18 00:00 CONCLUSION: Scattered plaque without significant stenosis. Orbit X-Ray 04/01/18 00:00 CONCLUSION: Small 2 mm metallic density in the right frontal scalp. No orbital metal is seen. Chest X-Ray 04/01/18 18:35 CONCLUSION: No acute abnormality is seen. Head CT 04/01/18 18:35 CONCLUSION: 1. No areas of hemorrhage or mass effect are seen. 2. Several areas of low density as described above likely from prior infarct. Report was called by Dr. Gonzalez to Dr. Lynch at 7:03 PM] Head MRI 04/01/18 19:23 CONCLUSION: 1. No acute abnormality seen. 2. Right temporal and right parietal encephalomalacia and old lacunar infarct at the left periventricular white matter and right caudate head. 3. Scattered areas of demyelination seen in the cerebral white matter. Head MRA 04/01/18 19:23 CONCLUSION: Asymmetry with diminished flow seen in the right posterior cerebral artery. Neck MRA 04/01/18 19:23 CONCLUSION: Moderate to severe focal stenosis at the proximal right internal carotid artery. Percent stenosis is calculated using the diameter of the stenotic region over the diameter of the normal distal internal carotid artery Abdomen X-Ray 04/01/18 19:57 CONCLUSION: No foreign body is seen. Review/Management - Review/Management Plan: Pt's aphasia has resolved MRI brain - shows old infarct but no acute changes MRA neck - stenosis of proximal R ICA CUS - no significant stenosis MRA COW- diminished flow R MOLD CLOSER UDS + cocaine LDL 72 would recommend CTA head/neck once kidney function improves, consider vascular consult ECHO pending UA +, culture pending restart ASA as pt had not been taking at home, discussed importance of taking daily encouraged smoking, cocaine and alcohol cessation permissive HTN at this time - he had been on Carvedilol at home goal LDL <70, would start statin if no contraindication MD note pt seen d/w PA agree to above recommendations and assessment likely he will need evaluation by vascular surgeon regarding his right proximal carotid. cont 162mg asa qd.
[2018-04-02] MEDS: Multivitamin Inj 10 ML, Folic Acid Inj 1 MG in Sodium Chlor 0.9% Inj 500 ML IV.SIG SCH (09:47)
--- NOTE | 2018-04-02 15:09 | P.PN ---
Subjective Interval history: 63 years old right handed male states aphasic asted for about 30 mins now feelin fine no weakness- speech per bpt- baseline admits to smoking, drinking and cocaine use- last used yesterday Physical Exam Vital signs: Vital Signs 04/01/18 18:22 04/01/18 18:46 04/01/18 19:20 Temperature 97.6 F Pulse Rate 72 56 L Respiratory Rate 17 20 Blood Pressure 234/107 H 214/113 H 193/98 H Pulse Oximetry 94 L 94 L 04/01/18 20:00 04/01/18 23:00 04/02/18 01:00 Temperature Pulse Rate 68 67 54 L Respiratory Rate 16 16 14 Blood Pressure 190/112 H 183/109 H 173/100 H Pulse Oximetry 97 98 99 04/02/18 02:00 04/02/18 06:14 04/02/18 09:45 Temperature Pulse Rate 52 L 58 L 64 Respiratory Rate 12 17 20 Blood Pressure 167/97 H 220/108 H 175/91 H Pulse Oximetry 99 99 04/02/18 10:15 04/02/18 12:31 04/02/18 13:02 Temperature 97.9 F Pulse Rate 64 64 62 Respiratory Rate 16 16 20 Blood Pressure 162/95 H 188/108 H 227/114 H Pulse Oximetry 97 97 97 04/02/18 13:52 Temperature Pulse Rate 62 Respiratory Rate 16 Blood Pressure 123/66 Pulse Oximetry 97 Intake & Output 04/01/18 04/02/18 04/02/18 18:59 06:59 18:59 Intake Total 1000 / 1000 Balance 1000 / 1000 Weight 68.039 kg Intake: IV 1000 / 1000 NS Inj 1,000 ML @ 100 mls/hr IV 1000 / 1000 .CONT .Q10H [facility] Rx#:[id number] Narrative: awake and alert, oriented x 3 speech clear no bruit anciteric lungs- no rales regular rhythm abdomen soft, nontender extremities no edema motor 5/5 grossly intact sensory and motor exam Results - Labs CBC & Chem 7: 04/02/18 06:20 04/03/18 07:25 Laboratory Results - last 24 hr 04/01/18 04/01/18 04/01/18 18:34 18:34 18:34 WBC RBC Hgb POC Hgb (Calc) Hct POC Hct MCV MCH MCHC RDW Plt Count MPV Prelim Diff (Auto) Neut % (Auto) Lymph % (Auto) [place] % (Auto) Eos % (Auto) Baso % (Auto) Neut # (Auto) Lymph # (Auto) [place] # (Auto) Eos # (Auto) Baso # (Auto) WBC Differential Diff Scan Differential Comment Platelet Estimate Platelet Morphology PT 10.7 INR 1.1 APTT 26.6 POC Sodium Sodium 142 POC Potassium Potassium 3.8 POC Chloride Chloride 108 H Carbon Dioxide 26.0 Anion Gap 8 POC BUN BUN 28 H Creatinine 2.10 H POC Creatinine Estimated GFR 39 L POC Glucose Random Glucose 72 L Calcium 8.5 Total Bilirubin AST ALT Alkaline Phosphatase Total Creatine Kinase 80 Troponin I 0.03 Total Protein Albumin Triglycerides Cholesterol LDL Cholesterol, Calc HDL Cholesterol Cholesterol/HDL Ratio Urine Color Urine Clarity Urine pH Ur Specific Mccleary Urine Protein Urine Glucose (UA) Urine Ketones Urine Occult Blood Urine Nitrate Urine Bilirubin Urine Urobilinogen Ur Leukocyte Esterase Urine RBC Urine WBC Urine WBC Clumps Ur Squamous Epith Cells Urine Mucus Micro UA Comment Urine Culture Comments Urine Opiates Screen Ur Barbiturates Screen Ur Amphetamines Screen U Benzodiazepines Scrn Urine Cocaine Screen U Cannabinoids Screen Blood Type B Positive Blood Type Recheck Required Antibody Screen Negative 04/01/18 04/01/18 04/02/18 18:36 18:36 00:10 WBC RBC Hgb POC Hgb (Calc) 17.0 Hct POC Hct 50.0 MCV MCH MCHC RDW Plt Count MPV Prelim Diff (Auto) Neut % (Auto) Lymph % (Auto) [place] % (Auto) Eos % (Auto) Baso % (Auto) Neut # (Auto) Lymph # (Auto) [place] # (Auto) Eos # (Auto) Baso # (Auto) WBC Differential Diff Scan Differential Comment Platelet Estimate Platelet Morphology PT INR APTT POC Sodium 141 Sodium POC Potassium 3.8 Potassium POC Chloride 101 L Chloride Carbon Dioxide Anion Gap POC BUN 31 H BUN Creatinine POC Creatinine 2.1 H Estimated GFR POC Glucose 73 74 Random Glucose Calcium Total Bilirubin AST ALT Alkaline Phosphatase Total Creatine Kinase Troponin I Total Protein Albumin Triglycerides Cholesterol LDL Cholesterol, Calc HDL Cholesterol Cholesterol/HDL Ratio Urine Color Yellow Urine Clarity Clear Urine pH 5.0 Ur Specific Mccleary 1.012 Urine Protein 100 H Urine Glucose (UA) Negative Urine Ketones Negative Urine Occult Blood Small H Urine Nitrate Negative Urine Bilirubin Negative Urine Urobilinogen Less than 2 Ur Leukocyte Esterase Moderate H Urine RBC 3 Urine WBC 58 H Urine WBC Clumps Few H Ur Squamous Epith Cells <1 Urine Mucus Few H Micro UA Comment Culture indicated Urine Culture Comments Culture indicated Urine Opiates Screen Ur Barbiturates Screen Ur Amphetamines Screen U Benzodiazepines Scrn Urine Cocaine Screen U Cannabinoids Screen Blood Type Blood Type Recheck Antibody Screen 04/02/18 04/02/18 04/02/18 00:10 06:20 06:20 WBC 3.9 L RBC 5.11 Hgb 15.9 POC Hgb (Calc) Hct 49.8 POC Hct MCV 97.4 MCH 31.1 MCHC 31.9 L RDW 14.5 Plt Count 98 L MPV 9.0 Prelim Diff (Auto) Slide review pending Neut % (Auto) 45.8 Lymph % (Auto) 35.4 [place] % (Auto) 14.8 H Eos % (Auto) 3.5 Baso % (Auto) 0.5 Neut # (Auto) 1.8 Lymph # (Auto) 1.4 [place] # (Auto) 0.6 Eos # (Auto) 0.1 Baso # (Auto) 0.0 WBC Differential . Diff Scan Auto diff confirmed Differential Comment . Platelet Estimate Low L Platelet Morphology Normal PT INR APTT POC Sodium Sodium 144 POC Potassium Potassium 3.7 POC Chloride Chloride 107 Carbon Dioxide 28.6 Anion Gap 8 POC BUN BUN 19 H Creatinine 1.39 H POC Creatinine Estimated GFR 62 L POC Glucose Random Glucose 79 Calcium 8.6 Total Bilirubin 0.8 AST 22 ALT 20 Alkaline Phosphatase 73 Total Creatine Kinase Troponin I Total Protein 6.4 Albumin 2.9 L Triglycerides 114 Cholesterol 142 LDL Cholesterol, Calc 72 HDL Cholesterol 47.4 Cholesterol/HDL Ratio 2.99 Urine Color Urine Clarity Urine pH Ur Specific Mccleary Urine Protein Urine Glucose (UA) Urine Ketones Urine Occult Blood Urine Nitrate Urine Bilirubin Urine Urobilinogen Ur Leukocyte Esterase Urine RBC Urine WBC Urine WBC Clumps Ur Squamous Epith Cells Urine Mucus Micro UA Comment Urine Culture Comments Urine Opiates Screen Neg Ur Barbiturates Screen Neg Ur Amphetamines Screen Neg U Benzodiazepines Scrn Neg Urine Cocaine Screen Pos H U Cannabinoids Screen Neg Blood Type Blood Type Recheck Antibody Screen - Imaging Impressions Carotid Doppler Study 04/01/18 00:00 CONCLUSION: Scattered plaque without significant stenosis. Orbit X-Ray 04/01/18 00:00 CONCLUSION: Small 2 mm metallic density in the right frontal scalp. No orbital metal is seen. Chest X-Ray 04/01/18 18:35 CONCLUSION: No acute abnormality is seen. Head CT 04/01/18 18:35 CONCLUSION: 1. No areas of hemorrhage or mass effect are seen. 2. Several areas of low density as described above likely from prior infarct. Report was called by Dr. Gonzalez to Dr. Lynch at 7:03 PM] Head MRI 04/01/18 19:23 CONCLUSION: 1. No acute abnormality seen. 2. Right temporal and right parietal encephalomalacia and old lacunar infarct at the left periventricular white matter and right caudate head. 3. Scattered areas of demyelination seen in the cerebral white matter. Head MRA 04/01/18 19:23 CONCLUSION: Asymmetry with diminished flow seen in the right posterior cerebral artery. Neck MRA 04/01/18 19:23 CONCLUSION: Moderate to severe focal stenosis at the proximal right internal carotid artery. Percent stenosis is calculated using the diameter of the stenotic region over the diameter of the normal distal internal carotid artery Abdomen X-Ray 04/01/18 19:57 CONCLUSION: No foreign body is seen. Assessment and Plan - Plan 63 years old right handed male TIA Right carotid stenosis moderate disease Altered mental status- reolved- back to baseline No focal deficits and symptoms have resolved Aspirin MRI/MRA brain no acute findings, old lacunar infarct Neurology ff Vascular surgery consult PT/OT consult Hypertensive crisis- BP better start CCB - Procardia 30 mg XL daily Clondidine prn Likely secondary to cocaine abuse Vasotec as needed- hold with ZOË Check Echo Alcohol/cocaine abuse [facility] protocol Monitor for signs of withdrawal Tox screen + cocaine Cessation counseling provided Acute kidney injury- creatinine trending down Creatinine 2.10, baseline unknown IV fluid hydration 70 cc/hr Monitor renal function. get renal ultrasound UTI- start on Levaquin 500 mg daily. FF C and S FEN started diet Electrolytes: Monitor and replete prn NS at 70 cc/hour Heparin SQ for DVT prophylaxis
[2018-04-02] MEDS ORDERED: amLODIPine 5 MG Tablet PO ONE (15:20)
--- NOTE | 2018-04-02 17:29 | US ---
EXAM DATE: 04/02/2018 4:27 PM EDT AGE/SEX: 63 years / Male INDICATIONS: Increased BUN/Creatinine. CLINICAL DATA: This is the patient's initial encounter. Patient reports that signs and symptoms have been present for 1 day and indicates a pain score of 0/10. MEDICAL/SURGICAL HISTORY: Hypertension. Altered mental status. Stroke. Substance abuse. None. COMPARISON: [facility] [place], [place] CAROTID DOPPLER BI, 04/01/2018. . MEASUREMENTS: Right Kidney:__9.2 x 4.9 x 3.8 cm Left Kidney:__10.2 x 5.1 x 4.3 cm FINDINGS: Right Kidney: Normal echotexture and cortical thickness. No mass or hydronephrosis. Left Kidney: Normal echotexture and cortical thickness. No mass or hydronephrosis. Bladder: Within normal limits given the degree of distension. Other: None. CONCLUSION: Unremarkable ultrasound examination of the kidneys. Electronically signed by: Moreno Agarwal MD 04/02/2018 5:28 PM EDT
[2018-04-02 18:02] LABS: Hemoglobin A1c 5.7 % (4.3-6.0)
--- NOTE | 2018-04-02 19:31 | CT ---
EXAM DATE: 04/02/2018 7:19 PM EDT AGE/SEX: 63 years / Male INDICATIONS: Abnormal MRA,obstruction CLINICAL DATA: This is the patient's initial encounter. Patient reports that signs and symptoms have been present for 1 day and indicates a pain score of 0/10. MEDICAL/SURGICAL HISTORY: Hypertension. Cerebrovascular disease. . Right endarectomy RADIATION DOSE: 9.87 CTDI (mGy) COMPARISON: [facility] – [place], MRA NECK W CONTRAST, 04/01/2018. [facility] [place], CT HEAD W/O CONTRAST, 04/01/2018. . TECHNIQUE: Volumetric scanning was performed using a multirow detector CT scanner during bolus infus ion of 72 ml Omnipaque 350 (iohexol) nonionic water-soluble contrast as a cumulative dose for multip le exams. The data was postprocessed with a variety of visualization algorithms including full-volu me maximum intensity projection, multiplanar sliding thin-slab reformation, curved-planar reformation , and surface-rendering techniques. Using automated exposure control and adjustment of the mA and/or kV according to patient size, radiation dose was kept as low as reasonably achievable to obtain opti mal diagnostic quality images. DICOM format image data is available electronically for review and co mparison. FINDINGS: Aortic Arch: The left common carotid artery arises from a common origin with the right brachiocephal ic artery. No ostial narrowing is seen. Right Carotid: There are clips seen around the right carotid bulb and proximal internal carotid cindy ry creating appearance of the stenosis on the MRI examination. The finding and the MRI examination is artifactual. There is mild plaque seen at the right carotid bulb region without significant stenosis . There is some tortuosity of the proximal right internal carotid artery. The external carotid cindy ry is intact. Left Carotid: The common carotid artery is intact. The carotid bulb is normal. There is mild plaqui ng at the proximal left internal carotid artery without significant stenosis. The external carotid a rtery is intact. Vertebrals: The vertebral arteries have a symmetric diameter. No stenotic lesions are seen. Percent stenosis is calculated using the diameter of the stenotic region over the diameter of the nor mal distal internal carotid artery. 1. No significant stenosis is seen. 2. Clips are seen around the right carotid bulb and proximal internal carotid artery region. Discret e an artifact in the MRI examination. The CTA is more accurate than the MRI given the surgical clips. No significant stenosis is seen. 3. Mild soft plaque at the right carotid bulb region. This causes a minimal impression on the lumen. Electronically signed by: Corey Gonzalez MD 04/02/2018 7:29 PM EDT
--- NOTE | 2018-04-02 22:55 | MB ---
cc: Jessica Yusuf MD DATE: 04/02/2018 CONSULTING PHYSICIAN: Jessica Yusuf MD, Vascular Surgery. REASON FOR CONSULTATION: Recurrent right carotid stenosis. HISTORY OF PRESENT ILLNESS: This 63-year-old male presents to the emergency room with altered mental status. He said he felt funny, cannot tell what the problem was. He said he was slurring speech, had a facial droop. Now that I am seeing him, he is awake and alert. The patient is known to have had previous CVA and uses cocaine and alcohol and is hypertensive. The MRA of the carotids reveals a right internal carotid artery stenosis and hence the consultation. PAST MEDICAL HISTORY: Hypertension, right internal carotid artery stenosis. SURGICAL HISTORY: Alleged right carotid endarterectomy in December in [place]. MEDICATIONS: None. ALLERGIES: NONE. SOCIAL HISTORY: The patient smokes a 1-1/2 packs of cigarettes and drinks, according to him, heavily, as well as uses cocaine. PHYSICAL EXAMINATION: GENERAL: Reveals a 63-year-old male appearing much older than his actual age. HEENT: Normocephalic. No trauma to the head. Pupils are equal, reactive. Extraocular muscles intact. NECK: Supple. Bilateral carotid pulses. The patient indeed has a right-sided bruit, about 3 through 6. The patient is very thin. CHEST: Bilateral breath sounds, decreased over both lungs vences consistent with [id number] chronic obstructive pulmonary disease. HEART: Regular rhythm. The patient has atrophy of the musculature of the chest wall and appears to be cachectic. ABDOMEN: Patulous, soft. Active bowel sounds. No rebound, no guarding, no masses. EXTREMITIES: The patient has bilateral femoral pulses on palpation, distal by Doppler. No signs of acute vascular deficit, but certainly chronic arterial insufficiency. No ulceration, necrosis or ischemic pain at rest. NEUROLOGIC: To me, patient appears to be aware in that he is oriented to time, place, and person. There is no motoric or sensory deficit at this time. ASSESSMENT AND PLAN: A 63-year-old male with a right internal carotid artery stenosis based on a neck MRA; however, it appears that the patient has had carotid endarterectomy this December, so this is a little fishy. While the restenosis can occur this early, it is quite unlikely. At this point, we will order a CTA of the carotids and if this is confirmed, the patient will need endovascular carotid stenting. I ordered a CTA. I know the patient's creatinine is a little up, but with some hydration we can help that. Thank you very much for the referral. MD CAROLINA Cooper/carolina/simone , 04:04 PM , 04:14 PM
[2018-04-03] MEDS: Sod Chloride 0.9% Inj 1,000 ML IV.CONT SCH (05:20)
[2018-04-03] MEDS: Multivitamin Inj 10 ML, Folic Acid Inj 1 MG in Sodium Chlor 0.9% Inj 500 ML IV.SIG SCH (08:23)
[2018-04-03 08:28] LABS: Calcium 8.7 mg/dL (8.5-10.1); Carbon Dioxide 27.6 meq/L (21.0-32.0); Potassium 4.1 meq/L (3.5-5.1)
--- NOTE | 2018-04-03 09:09 | P.PN ---
Subjective Interval history: awake and alert, no complains of headaches or shortness of breath, speech per patient is baseline no weakness denies any nausea or vomiting BP overnight elevated Physical Exam Vital signs: Vital Signs 04/02/18 09:45 04/02/18 10:15 04/02/18 12:31 Temperature 97.9 F Pulse Rate 64 64 64 Respiratory Rate 20 16 16 Blood Pressure 175/91 H 162/95 H 188/108 H Pulse Oximetry 97 97 04/02/18 13:02 04/02/18 13:52 04/02/18 18:28 Temperature 98.4 F Pulse Rate 62 62 66 Respiratory Rate 20 16 19 Blood Pressure 227/114 H 123/66 198/121 H Pulse Oximetry 97 97 90 L 04/02/18 20:00 04/03/18 00:00 04/03/18 04:00 Temperature 98.0 F 98 F 98 F Pulse Rate 72 79 75 Respiratory Rate 17 18 17 Blood Pressure 169/101 H 202/120 H 177/107 H Pulse Oximetry 90 L 93 L 90 L 04/03/18 08:44 Temperature 97.7 F Pulse Rate 70 Respiratory Rate 16 Blood Pressure 199/124 H Pulse Oximetry 94 L Intake & Output 04/02/18 04/03/18 04/03/18 18:59 06:59 18:59 Intake Total 2510.2 / 2510.2 1100 / 1100 Balance 2510.2 / 2510.2 1100 / 1100 Weight 54.3 kg Intake: IV 2510.2 / 2510.2 1000 / 1000 NS Inj 1,000 ML @ 75 mls/hr IV. 1999 / 1999 1000 / 1000 CONT .[id number] [facility] Rx#:[id number] MVI-12 Inj 10 ML Folvite Inj 1 510.2 / 510.2 MG In NS Inj 500 ML @ 125 mls/ hr IV.SIG DAILY [facility] Rx#: [id number] Oral 100 / 100 Other: Weight On Admission 1000 g Narrative: elevated BPs awake and alert, oriented x 3 speech clear, some mild expressive aphasia no bruit anicteric lungs- no rales regular rhythm abdomen soft, nontender extremities no edema motor 5/5 grossly intact sensory and motor exam Results - Labs CBC & Chem 7: 04/02/18 06:20 04/03/18 07:25 Laboratory Results - last 24 hr 04/02/18 04/02/1804/02/18 06:20 20:08 20:36 Sodium Potassium Chloride Carbon Dioxide Anion Gap BUN Creatinine Estimated GFR POC Glucose 106 101 Random Glucose Hemoglobin A1c 5.7 Calcium 04/03/18 04/03/18 07:25 08:11 Sodium 142 Potassium 4.1 Chloride 106 Carbon Dioxide 27.6 Anion Gap 8 BUN 11 Creatinine 1.10 Estimated GFR 82 L POC Glucose 89 Random Glucose 77 Hemoglobin A1c Calcium 8.7 - Imaging Impressions Abdomen/Bladder Ultrasound 04/02/18 00:00 CONCLUSION: Neck CTA 04/02/18 00:00 CONCLUSION: Assessment and Plan - Plan 63 years old right handed male TIA Right carotid stenosis moderate disease Altered mental status- reolved- back to baseline No focal deficits and symptoms have resolved Aspirin 162 mg daily MRI/MRA brain no acute findings, old lacunar infarct Neurology ff Vascular surgery consult PT/OT consult Hypertension uncontrolled- overnight elevated readings start CCB - Procardia 30 mg XL daily Clondidine prn when asked now- recalls taking a BP med - once a day- can;t recall name Check Echo- pending Alcohol/cocaine abuse [facility] protocol Monitor for signs of withdrawal Tox screen + cocaine Cessation counseling provided Acute kidney injury- creatinine trending down Creatinine 2.10, baseline unknown IV fluid hydration - decrease rate Monitor renal function. get renal ultrasound UTI- on Levaquin final C and S pending still FEN started diet Electrolytes: Monitor and replete prn NS at 70 cc/hour Heparin SQ for DVT prophylaxis
[2018-04-03] MEDS: levoFLOXacin Liq 25 MG/ML 100 ML Bottle PO SCH (12:41)
--- NOTE | 2018-04-03 17:11 | P.PNVS ---
Subjective Subjective/Hospital Course: 04/03/2018 Patient with neurologic symptoms admitted to our institution and preliminary MRI reveals stenosis of the right internal carotid artery. Considering the patient had a right carotid endarterectomy in December in [place] this will be considered early restenosis and is rather unlikely. Therefore CTA is performed which reveals normal flow and no stenotic areas in the internal carotid artery. MRI finding is artifact due to fina and metal clips in the area Therefore patient does not need any endovascular or vascular intervention at this time because his flow in both carotid arteries is patent and normal. We will sign off Thanks J Objective Vital Signs / I&O: Vital Signs 04/02/18 18:28 04/02/18 20:00 04/03/18 00:00 Temperature 98.4 F 98.0 F 98 F Pulse Rate 66 72 79 Respiratory Rate 19 17 18 Blood Pressure 198/121 H 169/101 H 202/120 H Pulse Oximetry 90 L 90 L 93 L 04/03/18 04:00 04/03/18 08:00 04/03/18 08:44 Temperature 98 F 97.7 F Pulse Rate 75 70 70 Respiratory Rate 17 16 Blood Pressure 177/107 H 199/124 H Pulse Oximetry 90 L 94 L 04/03/18 12:52 Temperature Pulse Rate 77 Respiratory Rate 18 Blood Pressure 172/100 H Pulse Oximetry 96 Intake & Output 04/02/18 04/03/18 04/03/18 18:59 06:59 18:59 Intake Total 2510.2 / 2510.2 1100 / 1100 1510.2 / 1510.2 Balance 2510.2 / 2510.2 1100 / 1100 1510.2 / 1510.2 Weight 54.3 kg Intake: IV 2510.2 / 2510.2 1000 / 1000 1510.2 / 1510.2 NS Inj 1,000 ML @ 42 mls/hr IV. 1999 / 1999 1000 / 1000 1000 / 1000 CONT .[id number] [facility] Rx#:[id number] MVI-12 Inj 10 ML Folvite Inj 1 510.2 / 510.2 510.2 / 510.2 MG In NS Inj 500 ML @ 125 mls/ hr IV.SIG DAILY [facility] Rx#: [id number] Oral 100 / 100 Other: Date of Last Bowel Movement 04/03/18 Weight On Admission 1000 g Laboratory Results - last 24 hr 07/04/02/18 04/02/18 06:20 20:08 20:36 Sodium Potassium Chloride Carbon Dioxide Anion Gap BUN Creatinine Estimated GFR POC Glucose 106 101 Random Glucose Hemoglobin A1c 5.7 Calcium 04/03/18 04/03/18 04/03/18 07:25 08:11 11:57 Sodium 142 Potassium 4.1 Chloride 106 Carbon Dioxide 27.6 Anion Gap 8 BUN 11 Creatinine 1.10 Estimated GFR 82 L POC Glucose 89 297 H Random Glucose 77 Hemoglobin A1c Calcium 8.7 Microbiology 04/02/18 00:10 Urine Culture - Preliminary Clean Catch Urine No growth in 24 hours Impressions Carotid Doppler Study 04/01/18 00:00 CONCLUSION: Scattered plaque without significant stenosis. Orbit X-Ray 04/01/18 00:00 CONCLUSION: Small 2 mm metallic density in the right frontal scalp. No orbital metal is seen. Chest X-Ray 04/01/18 18:35 CONCLUSION: No acute abnormality is seen. Head CT 04/01/18 18:35 CONCLUSION: 1. No areas of hemorrhage or mass effect are seen. 2. Several areas of low density as described above likely from prior infarct. Report was called by Dr. Gonzalez to Dr. Lynch at 7:03 PM] Head MRI 04/01/18 19:23 CONCLUSION: 1. No acute abnormality seen. 2. Right temporal and right parietal encephalomalacia and old lacunar infarct at the left periventricular white matter and right caudate head. 3. Scattered areas of demyelination seen in the cerebral white matter. Head MRA 04/01/18 19:23 CONCLUSION: Asymmetry with diminished flow seen in the right posterior cerebral artery. Neck MRA 04/01/18 19:23 CONCLUSION: Moderate to severe focal stenosis at the proximal right internal carotid artery. Percent stenosis is calculated using the diameter of the stenotic region over the diameter of the normal distal internal carotid artery Abdomen X-Ray 04/01/18 19:57 CONCLUSION: No foreign body is seen. Abdomen/Bladder Ultrasound 04/02/18 00:00 CONCLUSION: Neck CTA 04/02/18 00:00 CONCLUSION:
--- NOTE | 2018-04-04 09:49 | P.PN ---
Subjective Interval history: no complains of headaches, nausea or vomiting feels good "can I go home now" Physical Exam Vital signs: Vital Signs 04/03/18 12:52 04/03/18 18:07 04/03/18 20:00 Temperature 98.2 F Pulse Rate 77 70 Respiratory Rate 18 18 Blood Pressure 172/100 H 154/90 H Pulse Oximetry 96 96 94 L 04/04/18 00:00 04/04/18 04:00 Temperature 98.5 F 98.1 F Pulse Rate 74 72 Respiratory Rate 18 Blood Pressure 147/97 H 163/102 H Pulse Oximetry 97 93 L Intake & Output 04/03/18 04/04/18 04/04/18 18:59 06:59 18:59 Intake Total 1610.2 / 1610.2 Output Total 2200 / 2200 300 / 300 Balance 1610.2 / 1610.2 -2200 / -2200 -300 / -300 Weight 50.9 kg Intake: IV 1510.2 / 1510.2 NS Inj 1,000 ML @ 42 mls/hr IV. 1000 / 1000 CONT .[id number] [facility] Rx#:[id number] MVI-12 Inj 10 ML Folvite Inj 1 510.2 / 510.2 MG In NS Inj 500 ML @ 125 mls/ hr IV.SIG DAILY [facility] Rx#: [id number] Oral 100 / 100 Output: Urine 2200 / 2200 300 / 300 Other: Date of Last Bowel Movement 04/03/18 04/03/18 Narrative: awake and alert, oriented x 3 speech clear no bruit anciteric lungs- no rales regular rhythm abdomen soft, nontender extremities no edema motor 5/5 grossly intact sensory and motor exam gait steady Results - Labs CBC & Chem 7: 04/02/18 06:20 04/03/18 07:25 Laboratory Results - last 24 hr 04/03/18 11:57 POC Glucose 297 H Microbiology 04/02/18 00:10 Clean Catch Urine Urine Culture - Final No growth in 48 hours Assessment and Plan - Plan 63 years old right handed male TIA Right carotid stenosis moderate disease Altered mental status- resolved- back to baseline No focal deficits and symptoms have resolved Aspirin 162 mg daily MRI/MRA brain no acute findings, old lacunar infarct Neurology ff Vascular surgery saw- patient- no intervention PT/OT - doing well Hypertension uncontrolled Cardiomyopathy- EF 30-35% on echo LDL 72 Increased procardia to 60 mg XL daily now he recalls taking med- coreg 25 mg po bid - start Clondidine prn consider adding PADMINI for additional BP control if needed. Alcohol use /cocaine abuse- "rarely" [facility] protocol Monitor for signs of withdrawal- no sings- now denies chronic use Tox screen + cocaine Cessation counseling provided Acute kidney injury- resolved S/P IV hydration Creatinine 2.10, baseline unknown Renal ultrasound- echogenic kidneys Monitor renal function. US negative advise patient adequate fluid intake. UTI- on Levaquin 500 mg daily. FF C and S- no growth in 48 hours DC Levaquin- received 3 days course FEN up and ambulate- DC home today if stable today or in am per patient- PCP- Dr. tracy- ff up in 3 days Heparin SQ for DVT prophylaxis
[2018-04-04] MEDS: levoFLOXacin Liq 25 MG/ML 100 ML Bottle PO SCH (10:14)
--- NOTE | 2018-04-04 12:30 | ECHRPT ---
Indication: CVA/TIA CONCLUSIONS The left ventricular systolic function is severely reduced with an estimated ejection fraction in th e range of 30-35%. Normal left ventricular size. Wall thickness is normal. Trace mitral valve regurgitation. Trace aortic valve regurgitation. Trivial pulmonary valve regurgitation. BP: / HR: Rhythm: Sinus MEASUREMENTS (Male / Female) Normal Values Technical Quality:Technically difficult study 2D ECHO LV Diastolic Diameter PLAX 3.3 cm 4.2 - 5.9 / 3.9 - 5.3 cm LV Systolic Diameter PLAX 2.7 cm IVS Diastolic Thickness 0.8 cm 0.6 - 1.0 / 0.6 - 0.9 cm LVPW Diastolic Thickness 0.9 cm 0.6 - 1.0 / 0.6 - 0.9 cm LV Relative Wall Thickness 0.5 LVOT Diameter 1.6 cm LV Ejection Fraction MOD 4C 29.6 % LV Ejection Fraction 4C AL 31.0 % M-MODE Aortic Root Diameter MM 2.6 cm AV Cusp Separation MM 1.5 cm DOPPLER AV Peak Velocity 92.3 cm/s AV Peak Gradient 3.4 mmHg AI Peak Velocity 231.5 cm/s AI Peak Gradient 21.4 mmHg AI Pressure Half Time 1211.5 ms LVOT Peak Velocity 82.9 cm/s LVOT Peak Gradient 2.7 mmHg AV Area Cont Eq pk 1.8 cm MV Area PHT 4.9 cm Mitral E Point Velocity 45.9 cm/s Mitral A Point Velocity 93.3 cm/s Mitral E to A Ratio 0.5 LV E' Septal Velocity 9.8 cm/s Mitral E to LV E' Septal Ratio 4.7 PV Peak Velocity 84.2 cm/s PV Peak Gradient 2.8 mmHg FINDINGS LEFT VENTRICLE The left ventricular systolic function is severely reduced with an estimated ejection fraction in th e range of 30-35%. Normal left ventricular size. Wall thickness is normal. RIGHT VENTRICLE Normal right ventricular size and systolic function. LEFT ATRIUM The left atrial size is normal. RIGHT ATRIUM The right atrial size is normal. ATRIAL SEPTUM Normal atrial septal thickness without atrial level shunting by limited color doppler interrogation. AORTA The aortic root and proximal ascending aorta are normal in size on limited imaging. MITRAL VALVE Structurally normal mitral valve. Trace mitral valve regurgitation. AORTIC VALVE Trileaflet aortic valve. Trace aortic valve regurgitation. TRICUSPID VALVE Structurally normal tricuspid valve. No tricuspid valve stenosis or regurgitation. PULMONARY VALVE Trivial pulmonary valve regurgitation. VESSELS The inferior vena cava is normal in size. PERICARDIUM No pericardial effusion. Vinayak Galvan MD, FACC (Electronically Signed) Final Date:04 April 2018 12:29
[2018-04-04] MEDS ORDERED: Lisinopril 5 MG Tablet PO SCH (15:00)
[2018-04-04] MEDS: Carvedilol 12.5 MG Tablet PO SCH (21:49)
--- NOTE | 2018-04-05 07:44 | P.PN ---
Subjective Interval history: BP better no complains of headaches, nausea or vomiting no leatha pains or shortness of breath up and ambulating Physical Exam Vital signs: Vital Signs 04/04/18 08:00 04/04/18 12:00 04/04/18 16:00 Temperature 98.6 F 97.9 F 98.8 F Pulse Rate 52 L 70 73 Respiratory Rate 17 16 17 Blood Pressure 144/80 H 158/101 H 160/97 H Pulse Oximetry 95 94 L 04/04/18 20:00 04/05/18 00:00 04/05/18 04:00 Temperature 99 F 97.8 F 98 F Pulse Rate 70 65 69 Respiratory Rate 16 16 16 Blood Pressure 150/97 H 107/66 115/75 Pulse Oximetry 94 L 95 93 L Intake & Output 04/04/18 04/05/18 04/05/18 18:59 06:59 18:59 Output Total 300 / 300 400 / 400 Balance -300 / -300 -400 / -400 Weight 50.4 kg Output: Urine 300 / 300 400 / 400 Other: Date of Last Bowel Movement 04/03/18 04/04/18 Narrative: awake and alert, oriented x 3 speech clear no bruit anicteric lungs- no rales regular rhythm abdomen soft, nontender extremities no edema motor 5/5 grossly intact sensory and motor exam gait steady Results - Labs CBC & Chem 7: 04/02/18 06:20 04/03/18 07:25 Microbiology 04/02/18 00:10 Clean Catch Urine Urine Culture - Final No growth in 48 hours - Imaging Impressions Abdomen/Bladder Ultrasound 04/02/18 00:00 CONCLUSION: Unremarkable ultrasound examination of the kidneys. Assessment and Plan - Plan 63 years old right handed male TIA Right carotid stenosis moderate disease Altered mental status- resolved- back to baseline No focal deficits and symptoms have resolved Aspirin 162 mg daily MRI/MRA brain no acute findings, old lacunar infarct Neurology ff Vascular surgery saw- patient- no intervention PT/OT - doing well Hypertension uncontrolled- now with better readings Cardiomyopathy- EF 30-35% on echo LDL 72 Procardia to 60 mg XL daily coreg 25 mg po bid - recalled being on this before Clondidine prn consider adding PADMINI for additional BP control if needed.- not now with recent ZOË Alcohol use /cocaine abuse- "rarely" [facility] protocol Monitor for signs of withdrawal- no sings- now denies chronic use Tox screen + cocaine Cessation counseling provided Acute kidney injury- resolved S/P IV hydration. good po Creatinine 2.10, baseline unknown Renal ultrasound- echogenic kidneys Monitor renal function. US negative advise patient adequate fluid intake. UTI- on Levaquin 500 mg daily. FF C and S- no growth in 48 hours DC Levaquin- received 3 days course While going voer discharge instruction over with him-- re PCP-- saw a card - stating Dr. Mp tracy I saw a slip for ff up with Urology in his wallet now states history of Prostate cancer- he ff up with Urology - Dr. Kenney- has ff up appt on 02/28 told him to keep this appt up and ambulating - DC home today per patient- PCP- Dr. tracy- ff up in 3 days Heparin SQ for DVT prophylaxis
--- NOTE | 2018-04-05 07:57 | P.DS ---
Date of admission: 04/01/18 19:58 Primary care physician: Daniel Bradshaw MD Brief History from admission: 63-year-old male with a past medical history significant for hypertension and previous CVA along with cocaine and alcohol abuse, presents to the emergency department for the evaluation of altered mental status. The patient reports that he felt funny. He is an extremely poor historian. Upon further questioning, he states he had word finding difficulty and could not talk for "a while." His symptoms have since resolved. Per ED documentation, the patient was dropped off in the front waiting area by a friend for altered mental status. He was oriented to self only. He was extremely hypertensive on arrival to the emergency department. The patient currently denies chest pain or shortness of breath. No headache. No abdominal pain. No nausea/vomiting/ diarrhea. No focal deficits. DS: Medications - Discharge Medications Prescriptions: aspirin 162 mg PO DAILY 90 Days #180 tab carvedilol [Coreg] 25 mg PO BID #60 tab nifedipine 60 mg PO DAILY 90 Days #90 tab DS: Summary Hospital Course: 63 years old right handed male TIA Right carotid stenosis moderate disease Altered mental status- resolved- back to baseline No focal deficits and symptoms have resolved Aspirin 162 mg daily MRI/MRA brain no acute findings, old lacunar infarct Neurology ff Vascular surgery saw- patient- no intervention PT/OT - doing well Hypertension uncontrolled- now with better readings Cardiomyopathy- EF 30-35% on echo LDL 72 Increased procardia to 60 mg XL daily now he recalls taking med- coreg 25 mg po bid - start Clondidine prn consider adding PADMINI for additional BP control if needed.- not now with recent ZOË Alcohol use /cocaine abuse- "rarely" [facility] protocol Monitor for signs of withdrawal- no sings- now denies chronic use Tox screen + cocaine Cessation counseling provided Acute kidney injury- resolved S/P IV hydration. good po Creatinine 2.10, baseline unknown Renal ultrasound- echogenic kidneys Monitor renal function. US negative advise patient adequate fluid intake. UTI- on Levaquin 500 mg daily. FF C and S- no growth in 48 hours DC Levaquin- received 3 days course Heparin SQ for DVT prophylaxis up and ambulating - DC home today per patient- PCP- Dr. tracy- ff up in 3 days While going voer discharge instruction over with him-- re PCP-- saw a card - stating Dr. Mp tracy I saw a slip for ff up with Urology in his wallet now states history of Prostate cancer- he ff up with Urology - Dr. Kenney- has ff up appt on 02/28 told him to keep this appt - Time Spent with Patient Total time spent providing and/or coordinating discharge services: Greater than 30 minutes - Quality: Stroke Last date observed well: 04/01/18 Last time observed well: 17:20 - Quality: VTE Deep Vein Thrombosis/Pulmonary Embolism Present on Admission: No Exam Vital signs: Vital Signs 04/04/18 08:00 04/04/18 12:00 04/04/18 16:00 Temperature 98.6 F 97.9 F 98.8 F Pulse Rate 52 L 70 73 Respiratory Rate 17 16 17 Blood Pressure 144/80 H 158/101 H 160/97 H Pulse Oximetry 95 94 L 04/04/18 20:00 04/05/18 00:00 04/05/18 04:00 Temperature 99 F 97.8 F 98 F Pulse Rate 70 65 69 Respiratory Rate 16 16 16 Blood Pressure 150/97 H 107/66 115/75 Pulse Oximetry 94 L 95 93 L Intake & Output 04/04/18 04/05/18 04/05/18 18:59 06:59 18:59 Output Total 300 / 300 400 / 400 Balance -300 / -300 -400 / -400 Weight 50.4 kg Output: Urine 300 / 300 400 / 400 Other: Date of Last Bowel Movement 04/03/18 04/04/18 Narrative: awake and alert, no distress anicteric lungs- no rales regular rhythm abdomensoft, nontender extremities no edema CN intact, speehc clear motor 5/r gait steady Results Procedures completed during hospitalization: none - Impressions ITS Impressions Carotid Doppler Study 04/01/18 00:00 CONCLUSION: Scattered plaque without significant stenosis. Orbit X-Ray 04/01/18 00:00 CONCLUSION: Small 2 mm metallic density in the right frontal scalp. No orbital metal is seen. Chest X-Ray 04/01/18 18:35 CONCLUSION: No acute abnormality is seen. Head CT 04/01/18 18:35 CONCLUSION: 1. No areas of hemorrhage or mass effect are seen. 2. Several areas of low density as described above likely from prior infarct. Report was called by Dr. Gnozalez to Dr. Lynch at 7:03 PM] Head MRI 04/01/18 19:23 CONCLUSION: 1. No acute abnormality seen. 2. Right temporal and right parietal encephalomalacia and old lacunar infarct at the left periventricular white matter and right caudate head. 3. Scattered areas of demyelination seen in the cerebral white matter. Head MRA 04/01/18 19:23 CONCLUSION: Asymmetry with diminished flow seen in the right posterior cerebral artery. Neck MRA 04/01/18 19:23 CONCLUSION: Moderate to severe focal stenosis at the proximal right internal carotid artery. Percent stenosis is calculated using the diameter of the stenotic region over the diameter of the normal distal internal carotid artery Abdomen X-Ray 04/01/18 19:57 CONCLUSION: No foreign body is seen. Abdomen/Bladder Ultrasound 04/02/18 00:00 CONCLUSION: Unremarkable ultrasound examination of the kidneys. Neck CTA 04/02/18 00:00 CONCLUSION: Discharge Plan - Discharge Disposition Patient Disposition: 01 Discharge Home - Discharge Condition Condition: Stable - Discharge Order Discharge Orders: Discharge Order (Routine); Ordered 04/05/18 Ordered By: Nathanael Stevens - Discharge Details Anticipated Discharge Date: 04/05/18 - Physicians Team Primary Care Provider: Daniel Bradshaw Attending Provider: Nathanael Stevens Other Providers: Rosalina Parham MD ; Jessica Yusuf MD
[2018-04-05] MEDS: Carvedilol 12.5 MG Tablet PO SCH (08:35)
[2018-04-05 09:21] VITALS: TEMP 98.1
[2018-04-05 13:16] VITALS: RESP 14
[2018-04-05 17:53] VITALS: BP 105/69; PULSE 61; O2SAT 91
== END 2018-04-05 15:19 | disposition home or self-care (01) ==
LOC: NEPD 18:17 → NEDA 19:58 → N05 04-02 14:59
PROVIDERS: ADMIT Internal Medicine; ATTEND Internal Medicine